=== PATIENT | male | born 1990 | race Caucasian/White ===

== ENCOUNTER 2017-02-26 10:20 | Emergency (ER) | payer MEDICAID, OTHER ==
[~2017-02-26] VITALS: Ht 165.1 cm; Wt 88.0 kg
[2017-02-26 10:40] VITALS: Ht 165.1 cm; Wt 88.0 kg
[2017-02-26] MEDS ORDERED: KETO120S2 TOP (12:14)
[2017-02-26] MEDS ORDERED: BEN25 PO (12:14)
--- NOTE | 2017-02-26 12:48 | ERA ---
ER Documentation Chief Complaint Date/Time DATE: 02/26/17 TIME: 12:43 Chief Complaint RASH ON NECK AFTER SHAVING HPI Patient is 26-year-old male presenting with a chief complaint of rash 5 days it is described as pruritic and appearing after shaving. Patient has never had symptoms like this before. Patient tried hydrocortisone cream with worsening of symptoms. Patient denies fever chills, nausea, vomiting, diarrhea. Patient has no other complaints at this time. Patient does not describe any other associated manifestations. Denies any previous medical history, travel also denies states and the vaccinations are up-to-date. ROS All systems reviewed and are negative except as per history of present illness. Medications Home Meds Active Scripts Diphenhydramine Hcl* (Benadryl*) 25 Mg Cap, 25 MG PO Q6, #30 CAP Prov:PRADIP LANTIGUA PA-C 02/26/17 Ketoconazole* (Ketoconazole*) 2% - 120 Ml Shampoo, 1 APPLIC TOP DAILY for 14 Days, EA WASH HAIR/SCALP AND RINSE OFF Prov:PRADIP LANTIGUA PA-C 02/26/17 Allergies Allergies: Coded Allergies: No Known Allergy (Unverified , 02/26/17) PMhx/Soc Medical and Surgical Hx: pt denies Medical Hx History of Surgery: Yes (R ear surgery) Anesthesia Reaction: No Hx Neurological Disorder: No Hx Respiratory Disorders: No Hx Cardiac Disorders: No Hx Psychiatric Problems: No Hx Miscellaneous Medical Probl: No Hx Alcohol Use: No Hx Substance Use: No Hx Tobacco Use: No Smoking Status: Never smoker Physical Exam Vitals Vital Signs Date Time Temp Pulse Resp B/P Pulse Ox O2 Delivery O2 Flow Rate FiO2 02/26/17 10:40 98.5 85 18 119/72 96 Physical Exam Const: Overweight 26-year-old male Head: Atraumatic Eyes: Normal Conjunctiva ENT: Normal External Ears, Nose and Mouth. Neck: Rash as detailed in skin examination. Full range of motion..~ No meningismus. Resp: Clear to auscultation bilaterally Cardio: Regular rate and rhythm, no murmurs Abd: Soft, non tender, non distended. Normal bowel sounds Skin: Red rash with dried hydrocortisone cream overlying that extends from the left angle of the jaw to the right angle of the jaw to the level of the hyoid bone. There is no involvement in the posterior neck. There is no involvement from the chin to the neck fold. Back: No midline or flank tenderness Ext: No cyanosis, or edema Neur: Awake and alert Psych: Normal Mood and Affect Procedures/MDM Patient is present with a chief complaint of rash as described in the history and physical examination. Patient has tried hydrocortisone cream with worsening of symptoms. Patient's most likely diagnosis at this time is tinea Park. No suspicion for endangerment of the airway. At this time I doubt bacterial involvement, cellulitis, contact dermatitis, atopic dermatitis among other differential diagnoses. Patient will be discharged with ketoconazole cream to apply topically for 14 days as directed. I spoke with the patient and he has verbally agreed that he understands the treatment and management. Vitals are stable and his current condition is appropriate for discharge. We will go ahead and discharge the patient with discharge instructions and return precautions. Departure Diagnosis: Primary Impression: Tinea barbae Condition: Stable Patient Instructions: Fungal Infection, Skin [General] Additional Instructions: Follow up with your PCP within the next 1-3 days for a more thorough evaluation and a possible referral to a specialist. Return the the emergency department immediately if symptoms worsen or change. If you have any questions regarding medications, ask your pharmacist or us before you leave. If any adverse reactions occur while taking your medications, discontinue the treatment and return to the emergency department immediately. Take your medications as directed, and complete the entire course of treatment. PRADIP LANTIGUA PA-C Feb 26, 2017 12:48
[2017-02-26] MEDS ORDERED: NIZ30CR2 TOP (12:56)
== END 2017-02-26 12:59 | disposition home or self-care (01) ==
LOC: FTE 10:20
DX: B35.0 Tinea barbae and tinea capitis (principal)
CPT/HCPCS: 99283